=== PATIENT | female | born 1990 | race Caucasian/White ===

== ENCOUNTER → 2018-07-16 12:36 | Outpatient (CLI) | payer BC ==
[2010-11-18 08:52] VITALS: BMI 38.7
[2018-07-16 15:36] LABS: T4 THYROXIN - FREE 1.6 ng/dL (0.76-1.46); THYROID STIMULATING HORMONE 0.27 uIU/mL (0.36-3.74)
== END | disposition home or self-care (01) ==
LOC: D.LABREF 12:36
PROVIDERS: Internal Medicine Cardiovascular Disease
DX: R00.2 Palpitations (principal)